=== PATIENT | male | born 1970 | race Caucasian/White ===

== ENCOUNTER 2019-05-14 15:23 | Emergency (ER) | payer OTHER ==
[~2019-05-14] VITALS: Ht 182.9 cm; Wt 102.1 kg
[2019-05-14 16:00] VITALS: BP_SYST 142
[2019-05-14 16:09] LABS: BASOPHILS # (AUTO) 0.1 K/uL (0.0-0.2); BASOPHILS % (AUTO) 0.7 % (0.0-2.0); EOSINOPHILS # (AUTO) 0.1 K/uL (0.0-0.4); EOSINOPHILS % (AUTO) 1.1 % (0.0-4.0); HEMATOCRIT 45.3 % (36-54); HEMOGLOBIN 15.9 g/dL (14.0-18.0); LYMPHOCYTES # (AUTO) 1.4 K/uL (1.0-5.5); LYMPHOCYTES % (AUTO) 16.4 % (20.5-51.5); MEAN CORPUSCULAR HEMOGLOBIN 32 pg (27-31); MEAN CORPUSCULAR HGB CONC 35 % (32-36); MEAN CORPUSCULAR VOLUME 92 fL (79.0-98.0); MONOCYTES # (AUTO) 0.7 K/uL (0.0-1.0); MONOCYTES % (AUTO) 8.6 % (1.7-9.3); NEUTROPHILS # (AUTO) 6.1 K/uL (1.8-7.7); NEUTROPHILS % (AUTO) 73.2 % (40.0-70.0); PLATELET COUNT (AUTO) 255 K/uL (130-430); RED BLOOD CELL COUNT(AUTO) 4.95 MIL/uL (4.2-6.2); RED CELL DISTRIBUTION WIDTH 13.3 % (9.0-15.0); WHITE BLOOD COUNT (AUTO) 8.3 K/uL (4.8-10.8)
[2019-05-14 16:24] LABS: CALCIUM 9.7 mg/dL (8.4-11.0); CREATININE 1.04 mg/dL (0.55-1.30); POTASSIUM 3.3 mmol/L (3.5-5.1)
[2019-05-14 16:30] LABS: ALBUMIN 4.2 g/dL (3.4-4.8); TOTAL BILIRUBIN 0.7 mg/dL (0.0-1.0)
--- NOTE | 2019-05-14 16:40 | NUR ---
Patient to ER bed 08 to gown for evaluation. Side rails up.
--- NOTE | 2019-05-14 16:42 | NUR ---
Patient arrived in the ED c/o diarrhea, weakness, fatigue, and headaches that started 2 days ago. Patient is alert and oriented x4, respirations even and unlabored, speaking in full sentences, ambulating with a steady gait. Denied any respiratory distress at this time. Informed of the wait time. Instructed to notify ED staff for any changes or worsening of symptoms. Patient verbalized understanding.
--- NOTE | 2019-05-14 16:45 | NUR ---
EMMY Cooper at bedside examining patient.
--- NOTE | 2019-05-14 16:55 | NUR ---
# 18 gauge angiocath placed to LAC. Use of asceptic technique. Opsite placed over site. Blood return noted. Flushed with 10 cc of normal saline. No evidence of infiltration noted. Patient tolerated well.
[2019-05-14] MEDS ORDERED: NACL 0.9% 1,000 ML IV ONE (17:00)
[2019-05-14] MEDS ORDERED: KETOROLAC TROMETHAMINE 30 MG VIAL IVP ONE (17:00)
[2019-05-14] MEDS ORDERED: POTASSIUM CHLORIDE 20 MEQ TAB.PRT.SR PO ONE (17:15)
--- NOTE | 2019-05-14 18:00 | NUR ---
Administered K-dur PO as ordered by Dr. Cooper. Patient tolerated the medication well.
[2019-05-14] MEDS ORDERED: ONDANSETRON HCL 4 MG/2 ML VIAL IVP ONE (18:30)
--- NOTE | 2019-05-14 18:30 | NUR ---
Discontinued IV as ordered by Dr. Cooper. Patient tolerated the procedure well.
--- NOTE | 2019-05-14 18:32 | NUR ---
Patient given written and verbal discharge instructions and verbalizes understanding. ER MD discussed with patient the results and treatment provided. Patient in stable condition. ID arm band removed. IV catheter removed intact and dressing applied, no active bleeding. No Rx given. Patient educated on pain management and to follow up with PMD. Pain Scale 2/10. Opportunity for questions provided and answered. Medication side effect fact sheet provided.
[2019-05-14 18:33] VITALS: BP_SYST 130
== END 2019-05-14 18:33 | disposition home or self-care (01) ==
LOC: SED 15:23
DX: K52.9 Noninfective gastroenteritis and colitis, unspecified (principal); E87.6 Hypokalemia; R51 Headache; R53.1 Weakness
CPT/HCPCS: 36415; 71046; 80053; 85025; 86710; 96360; 99284; J1885; J7030

== ENCOUNTER 2024-03-02 06:02 | Day surgery (SDC) | payer OTHER ==
[~2024-03-02] VITALS: Ht 180.3 cm; Wt 120.2 kg
[2024-03-02] MEDS ORDERED: fentaNYL CITRATE/PF 100 MCG/2 ML AMP ONE ×2 (06:56→08:25)
[2024-03-02] MEDS ORDERED: MIDAZOLAM HCL 5 MG/5 ML VIAL ONE ×2 (06:57→08:26)
[2024-03-02] MEDS ORDERED: SIMETHICONE 40 MG/0.6 ML ML ONE (06:57)
[2024-03-02 13:31] VITALS: O2SAT 97
[2024-03-02 19:49] VITALS: BP_SYST 109; PULSE 63; RESP 16
== END 2024-03-02 09:04 | disposition home or self-care (01) ==
LOC: SDS 06:02 → SMU 06:06 → SDS 09:04
PROVIDERS: ATTEND Internal Medicine
DX: R10.30 Lower abdominal pain, unspecified (principal); K63.5 Polyp of colon; K64.8 Other hemorrhoids; I10 Essential (primary) hypertension; E78.5 Hyperlipidemia, unspecified; Z90.49 Acquired absence of other specified parts of digestive tract; Z98.890 Other specified postprocedural states; Z86.711 Personal history of pulmonary embolism; Z79.899 Other long term (current) drug therapy
CPT/HCPCS: 45380; 99152; 88305; G0378; J2250; J3010